=== PATIENT | female | born 1940 | race Caucasian/White ===

== ENCOUNTER 2023-10-03 17:09 | Inpatient (IN) | payer MEDICARE, OTHER ==
[2023-10-03 18:52] LABS: BASO % 1.4 % (0-2.0); EOS % 0.9 % (0-4.5); HEMATOCRIT 39.6 % (32.4-45.2); LYMPH % 9.5 % (8-40); MCH 33.4 pg (25.7-33.7); MCHC 32.8 g/dl (32.0-36.0); MEAN PLT VOLUME 7.5 fl (7.5-11.1); MONO % 16.3 % (3.8-10.2); NEUT % 71.9 % (42.8-82.8); PLATELET COUNT 136 10^3/uL (134-434); RBC 3.88 M/mm3 (3.60-5.2); RDW 17.6 % (11.6-15.6); WHITE BLOOD COUNT 3.4 K/mm3 (4.0-10.0)
[2023-10-03 19:04] LABS: INR 0.92 (0.83-1.09); PROTHROMBIN TIME (PATIENT) 10.7 SEC (9.7-13.0)
[2023-10-03 19:07] LABS: ACTIVATED PTT 31.7 SECONDS (25.2-36.5)
[2023-10-03 19:16] LABS: CHLORIDE 97 mmol/L (98-107); POTASSIUM 4.2 mmol/L (3.5-5.1); SODIUM 137 mmol/L (136-145)
[2023-10-03 19:18] LABS: CALCIUM 9.1 mg/dL (8.5-10.1)
[2023-10-03 19:19] LABS: ALBUMIN 3.5 g/dl (3.4-5.0); ANION GAP 9 mmol/L (4-13); CO2 32 mmol/L (21-32); GLUCOSE,RANDOM 113 mg/dL (74-106)
[2023-10-03 19:22] LABS: CREATININE 4.6 mg/dL (0.55-1.3); SGOT/AST 18 U/L (15-37); SGPT/ALT 13 U/L (13-61)
[2023-10-03 19:24] LABS: BILIRUBIN,TOTAL 0.9 mg/dL (0.2-1)
[2023-10-03 19:25] LABS: ALK PHOS 146 U/L (45-117)
[2023-10-03 19:29] LABS: BLOOD UREA NITROGEN 18.4 mg/dL (7-18)
[2023-10-03] MEDS ORDERED: ASPIRIN 81 MG CHEWABLE TABLETS PO ONE (21:23)
[2023-10-03] MEDS ORDERED: ASPIRIN 81 MG CHEWABLE TABLETS ONE (21:48)
[2023-10-03 22:47] LABS: MAGNESIUM 2.1 mg/dL (1.8-2.4)
[2023-10-03] MEDS ORDERED: MAGNESIUM HYDROX 2400MG/30ML ORAL SUSPENSION 30 ML CUP PO PRN (23:08)
[2023-10-03] MEDS ORDERED: ACETAMINOPHEN 325 MG TABLET (FP) PO PRN (23:10)
[2023-10-04] MEDS: OSELTAMIVIR PHOSPHATE 30 MG CAPSULE PO SCH (00:18)
[2023-10-04 07:44] LABS: POTASSIUM 4.7 mmol/L (3.5-5.1)
[2023-10-04 07:46] LABS: BASO % 0.7 % (0-2.0); EOS % 3.3 % (0-4.5); HEMATOCRIT 37.3 % (32.4-45.2); HEMOGLOBIN 12.2 GM/dL (10.7-15.3); LYMPH % 18.1 % (8-40); MCH 33.5 pg (25.7-33.7); MCHC 32.8 g/dl (32.0-36.0); MEAN CELL VOLUME 102.1 fl (80-96); MEAN PLT VOLUME 7.7 fl (7.5-11.1); MONO % 18.2 % (3.8-10.2); NEUT % 59.7 % (42.8-82.8); PLATELET COUNT 136 10^3/uL (134-434); RBC 3.65 M/mm3 (3.60-5.2); RDW 17.4 % (11.6-15.6); WHITE BLOOD COUNT 3.2 K/mm3 (4.0-10.0)
[2023-10-04 07:48] LABS: ALBUMIN 3.3 g/dl (3.4-5.0); CALCIUM 9.6 mg/dL (8.5-10.1)
[2023-10-04 07:49] LABS: BLOOD UREA NITROGEN 31.7 mg/dL (7-18)
[2023-10-04 07:52] LABS: CREATININE 5.8 mg/dL (0.55-1.3)
[2023-10-04 07:53] LABS: BILIRUBIN,TOTAL 0.8 mg/dL (0.2-1); TOT PROT 6.3 g/dl (6.4-8.2)
[2023-10-04] MEDS: SEVELAMER CARBONATE 800 MG TAB (FP) PO SCH ×3 (08:45→20:05)
[2023-10-04] MEDS ORDERED: amLODIPine BESYLATE 5 MG TABLET (FP) ONE (10:01)
[2023-10-04] MEDS ORDERED: SEVELAMER CARBONATE 800 MG TAB (FP) ONE ×3 (10:01→20:03)
[2023-10-04] MEDS: amLODIPine BESYLATE 5 MG TABLET (FP) PO SCH (10:19)
[2023-10-04] MEDS: HEPARIN NA (PORCINE) 5,000 UNITS/ML 1ML VIAL SQ SCH ×2 (10:20→22:08)
[2023-10-04] MEDS: ASPIRIN 81 MG CHEWABLE TABLETS PO SCH (10:20)
[2023-10-04] MEDS: azaTHIOprine 50 MG TABLET PO SCH (12:55)
[2023-10-04] MEDS ORDERED: SODIUM CHLORIDE 250 ML IV PRN (13:55)
[2023-10-04] MEDS ORDERED: HEPARIN NA (PORCINE) 5,000 UNITS/ML 1ML VIAL ONE (21:58)
[2023-10-05] MEDS ORDERED: SEVELAMER CARBONATE 800 MG TAB (FP) ONE (08:16)
[2023-10-05] MEDS ORDERED: ASPIRIN 81 MG CHEWABLE TABLETS ONE (08:16)
[2023-10-05] MEDS ORDERED: amLODIPine BESYLATE 5 MG TABLET (FP) ONE (08:16)
[2023-10-05] MEDS ORDERED: HEPARIN NA (PORCINE) 5,000 UNITS/ML 1ML VIAL ONE (08:16)
[2023-10-05] MEDS: SEVELAMER CARBONATE 800 MG TAB (FP) PO SCH ×3 (08:18→20:47)
[2023-10-05] MEDS: ASPIRIN 81 MG CHEWABLE TABLETS PO SCH (09:53)
[2023-10-05] MEDS: HEPARIN NA (PORCINE) 5,000 UNITS/ML 1ML VIAL SQ SCH ×2 (09:53→22:13)
[2023-10-05] MEDS: amLODIPine BESYLATE 5 MG TABLET (FP) PO SCH (09:53)
[2023-10-05] MEDS: azaTHIOprine 50 MG TABLET PO SCH (09:53)
[2023-10-05] MEDS: OSELTAMIVIR PHOSPHATE 30 MG CAPSULE PO SCH (22:16)
[2023-10-06 06:53] LABS: BASO % 0.9 % (0-2.0); EOS % 5.1 % (0-4.5); HEMOGLOBIN 12.3 GM/dL (10.7-15.3); LYMPH % 20.2 % (8-40); MCH 33.7 pg (25.7-33.7); MCHC 33.3 g/dl (32.0-36.0); MEAN CELL VOLUME 101.2 fl (80-96); MEAN PLT VOLUME 8.2 fl (7.5-11.1); MONO % 13.6 % (3.8-10.2); NEUT % 60.2 % (42.8-82.8); PLATELET COUNT 130 10^3/uL (134-434); RBC 3.65 M/mm3 (3.60-5.2); RDW 17.1 % (11.6-15.6); WHITE BLOOD COUNT 2.9 K/mm3 (4.0-10.0)
[2023-10-06 07:13] LABS: POTASSIUM 3.9 mmol/L (3.5-5.1)
[2023-10-06 07:22] LABS: CALCIUM 9.2 mg/dL (8.5-10.1)
[2023-10-06 07:23] LABS: BLOOD UREA NITROGEN 25.9 mg/dL (7-18)
[2023-10-06 07:25] LABS: CREATININE 4.6 mg/dL (0.55-1.3)
[2023-10-06 07:27] LABS: BILIRUBIN,TOTAL 0.6 mg/dL (0.2-1); TOT PROT 5.8 g/dl (6.4-8.2)
[2023-10-06] MEDS: SEVELAMER CARBONATE 800 MG TAB (FP) PO SCH ×2 (08:53→15:56)
[2023-10-06] MEDS: HEPARIN NA (PORCINE) 5,000 UNITS/ML 1ML VIAL SQ SCH ×2 (09:00→21:18)
[2023-10-06] MEDS: amLODIPine BESYLATE 5 MG TABLET (FP) PO SCH (09:00)
[2023-10-06] MEDS: ASPIRIN 81 MG CHEWABLE TABLETS PO SCH (09:00)
[2023-10-06 14:02] VITALS: BMI 19.9
[2023-10-06] MEDS: azaTHIOprine 50 MG TABLET PO SCH (15:56)
[2023-10-07] MEDS: SEVELAMER CARBONATE 800 MG TAB (FP) PO SCH ×4 (07:52→18:08)
[2023-10-07] MEDS: HEPARIN NA (PORCINE) 5,000 UNITS/ML 1ML VIAL SQ SCH ×2 (09:00→22:49)
[2023-10-07] MEDS: ASPIRIN 81 MG CHEWABLE TABLETS PO SCH (09:01)
[2023-10-07] MEDS: amLODIPine BESYLATE 5 MG TABLET (FP) PO SCH (09:01)
[2023-10-07] MEDS: azaTHIOprine 50 MG TABLET PO SCH (09:01)
[2023-10-07] MEDS: OSELTAMIVIR PHOSPHATE 30 MG CAPSULE PO SCH (23:23)
[2023-10-08] MEDS ORDERED: SODIUM CHLORIDE 250 ML IV PRN (07:23)
[2023-10-08] MEDS: SEVELAMER CARBONATE 800 MG TAB (FP) PO SCH ×3 (07:53→17:33)
[2023-10-08 09:30] LABS: BASO % 1.1 % (0-2.0); EOS % 5.2 % (0-4.5); HEMATOCRIT 33.5 % (32.4-45.2); HEMOGLOBIN 11.2 GM/dL (10.7-15.3); LYMPH % 12.4 % (8-40); MCH 34.1 pg (25.7-33.7); MCHC 33.6 g/dl (32.0-36.0); MEAN CELL VOLUME 101.5 fl (80-96); MEAN PLT VOLUME 8.1 fl (7.5-11.1); MONO % 11.8 % (3.8-10.2); NEUT % 69.5 % (42.8-82.8); PLATELET COUNT 136 10^3/uL (134-434); RDW 16.9 % (11.6-15.6); WHITE BLOOD COUNT 3.2 K/mm3 (4.0-10.0)
[2023-10-08 09:37] LABS: CHLORIDE 100 mmol/L (98-107); POTASSIUM 4.6 mmol/L (3.5-5.1); SODIUM 134 mmol/L (136-145)
[2023-10-08 09:39] LABS: CALCIUM 8.6 mg/dL (8.5-10.1)
[2023-10-08 09:40] LABS: ANION GAP 7 mmol/L (4-13); CO2 26 mmol/L (21-32); GLUCOSE,RANDOM 92 mg/dL (74-106)
[2023-10-08 09:43] LABS: SGOT/AST 18 U/L (15-37); SGPT/ALT 13 U/L (13-61)
[2023-10-08 09:45] LABS: BILIRUBIN,TOTAL 0.7 mg/dL (0.2-1); TOT PROT 5.9 g/dl (6.4-8.2)
[2023-10-08 09:46] LABS: ALK PHOS 113 U/L (45-117)
[2023-10-08 09:52] LABS: BLOOD UREA NITROGEN 64.3 mg/dL (7-18); CREATININE 8.7 mg/dL (0.55-1.3)
[2023-10-08 10:22] VITALS: RESP 18
[2023-10-08] MEDS: azaTHIOprine 50 MG TABLET PO SCH (12:05)
[2023-10-08] MEDS: ASPIRIN 81 MG CHEWABLE TABLETS PO SCH (12:05)
[2023-10-08] MEDS: amLODIPine BESYLATE 5 MG TABLET (FP) PO SCH (12:05)
[2023-10-08] MEDS: HEPARIN NA (PORCINE) 5,000 UNITS/ML 1ML VIAL SQ SCH (12:05)
[2023-10-08 16:06] VITALS: BP 150/70; PULSE 80; TEMP 98.4
== END 2023-10-08 18:13 | DRG 193 ==
LOC: JER 17:09 → JERBED 20:13 → JICU 10-05 17:51 → J4S 10-07 20:48
PROVIDERS: ADMIT Internal Medicine; ATTEND Internal Medicine
PROC: 5A1D70Z Performance of Urinary Filtration, Intermittent, Less than 6 Hours Per Day (ICD-10-PCS; principal; 2023-10-08)
DX: J10.1 Influenza due to other identified influenza virus with other respiratory manifestations (principal); N18.6 End stage renal disease; I13.2 Hypertensive heart and chronic kidney disease with heart failure and with stage 5 chronic kidney disease, or end stage renal disease; I24.89 Other forms of acute ischemic heart disease; B97.4 Respiratory syncytial virus as the cause of diseases classified elsewhere; Z99.2 Dependence on renal dialysis; I50.9 Heart failure, unspecified
CPT/HCPCS: 0241U-QW; 36415; 70450-TC; 71045-TC-FY; 72125-TC; 72170-TC-FY; 80053; 80061; 82550; 82553; 83735; 84443; 84484; 85025; 85610; 85730; 86704; 86803; 86850; 86870; 86880; 86900; 86901; 86902; 87040; 87340; 87517; 93005; 93010; 93306-TC; 93880-TC; 99285-25; J1644

== ENCOUNTER 2024-08-01 15:42 | Inpatient (IN) | payer MEDICARE, OTHER ==
[2024-08-01 16:27] VITALS: BMI 29.2
[2024-08-01 17:54] LABS: EOS % 3.1 % (0-4.5); HEMATOCRIT 32.3 % (32.4-45.2); HEMOGLOBIN 10.8 GM/dL (10.7-15.3); LYMPH % 8.9 % (8-40); MCH 33.4 pg (25.7-33.7); MCHC 33.5 g/dl (32.0-36.0); MEAN CELL VOLUME 99.6 fl (80-96); MEAN PLT VOLUME 7.3 fl (7.5-11.1); MONO % 10.3 % (3.8-10.2); NEUT % 76.7 % (42.8-82.8); PLATELET COUNT 191 10^3/uL (134-434); RBC 3.25 M/mm3 (3.60-5.2); RDW 18.2 % (11.6-15.6); WHITE BLOOD COUNT 4.1 K/mm3 (4.0-10.0)
[2024-08-01 18:09] LABS: POTASSIUM 4.5 mmol/L (3.5-5.1)
[2024-08-01 18:11] LABS: ALBUMIN 3.3 g/dl (3.4-5.0); BLOOD UREA NITROGEN 32.5 mg/dL (7-18); CALCIUM 8.9 mg/dL (8.5-10.1); MAGNESIUM 2.1 mg/dL (1.8-2.4)
[2024-08-01 18:15] LABS: CREATININE 4.7 mg/dL (0.55-1.3); PHOSPHOROUS 3.4 mg/dL (2.5-4.9)
[2024-08-01 18:16] LABS: BILIRUBIN,TOTAL 1.3 mg/dL (0.2-1); TOT PROT 6.2 g/dl (6.4-8.2)
[2024-08-01] MEDS ORDERED: SODIUM PHOSPHATE/NA BIPHOS 133 ML ENEMA RC PRN ×2 (21:02→21:14)
[2024-08-01] MEDS ORDERED: BISACODYL 10 MG SUPP.RECT RC PRN (21:02)
[2024-08-01] MEDS: HEPARIN NA (PORCINE) 5,000 UNITS/ML 1ML VIAL SQ SCH (22:55)
[2024-08-02 09:53] LABS: HEMATOCRIT 29.3 % (32.4-45.2); HEMOGLOBIN 9.9 GM/dL (10.7-15.3); MCH 33.7 pg (25.7-33.7); MCHC 33.8 g/dl (32.0-36.0); MEAN CELL VOLUME 99.5 fl (80-96); MEAN PLT VOLUME 7.2 fl (7.5-11.1); PLATELET COUNT 173 10^3/uL (134-434); RBC 2.94 M/mm3 (3.60-5.2); WHITE BLOOD COUNT 4.1 K/mm3 (4.0-10.0)
[2024-08-02 10:21] LABS: POTASSIUM 4.3 mmol/L (3.5-5.1)
[2024-08-02 10:24] LABS: CALCIUM 8.8 mg/dL (8.5-10.1)
[2024-08-02 10:25] LABS: BLOOD UREA NITROGEN 40.2 mg/dL (7-18); MAGNESIUM 2.1 mg/dL (1.8-2.4)
[2024-08-02] MEDS: SEVELAMER CARBONATE 800 MG TAB (FP) PO SCH (10:27)
[2024-08-02 10:28] LABS: CREATININE 5.5 mg/dL (0.55-1.3)
[2024-08-02 10:29] LABS: PHOSPHOROUS 4.1 mg/dL (2.5-4.9)
[2024-08-02] MEDS: amLODIPine BESYLATE 5 MG TABLET (FP) PO SCH (10:37)
[2024-08-02] MEDS ORDERED: SODIUM CHLORIDE 250 ML IV PRN (18:45)
[2024-08-03 12:08] LABS: BASO % 0.9 % (0-2.0); EOS % 1.9 % (0-4.5); HEMOGLOBIN 10.2 GM/dL (10.7-15.3); LYMPH % 9.3 % (8-40); MCH 32.9 pg (25.7-33.7); MCHC 32.8 g/dl (32.0-36.0); MEAN CELL VOLUME 100.3 fl (80-96); MEAN PLT VOLUME 7.5 fl (7.5-11.1); MONO % 10.2 % (3.8-10.2); NEUT % 77.7 % (42.8-82.8); PLATELET COUNT 192 10^3/uL (134-434); RBC 3.09 M/mm3 (3.60-5.2); RDW 17.9 % (11.6-15.6); WHITE BLOOD COUNT 4.3 K/mm3 (4.0-10.0)
[2024-08-03 12:41] LABS: POTASSIUM 4.5 mmol/L (3.5-5.1)
[2024-08-03 12:49] LABS: CREATININE 7.2 mg/dL (0.55-1.3)
[2024-08-03 12:50] LABS: PHOSPHOROUS 4.5 mg/dL (2.5-4.9)
[2024-08-03 12:51] LABS: BILIRUBIN,TOTAL 1.2 mg/dL (0.2-1)
[2024-08-03 12:54] LABS: CALCIUM 8.9 mg/dL (8.5-10.1)
[2024-08-03 12:55] LABS: ALBUMIN 3.1 g/dl (3.4-5.0); MAGNESIUM 2.3 mg/dL (1.8-2.4)
[2024-08-04 01:12] VITALS: RESP 18
[2024-08-04 09:22] VITALS: PULSE 65
[2024-08-04] MEDS: amLODIPine BESYLATE 2.5 MG TABLET (FP) PO SCH (09:55)
[2024-08-04 14:13] VITALS: BP 168/74; TEMP 98.4
== END 2024-08-04 15:24 | DRG 640 ==
LOC: JER 15:42 → JERBED 20:07 → OBSVTOIN 20:35 → J5S 22:15
PROVIDERS: ADMIT Internal Medicine
PROC: 5A1D70Z Performance of Urinary Filtration, Intermittent, Less than 6 Hours Per Day (ICD-10-PCS; principal; 2024-08-03)
DX: E87.1 Hypo-osmolality and hyponatremia (principal); N18.6 End stage renal disease; I13.2 Hypertensive heart and chronic kidney disease with heart failure and with stage 5 chronic kidney disease, or end stage renal disease; F03.90 Unspecified dementia, unspecified severity, without behavioral disturbance, psychotic disturbance, mood disturbance, and anxiety; I50.9 Heart failure, unspecified; Z99.2 Dependence on renal dialysis; F32.A Depression, unspecified; F41.9 Anxiety disorder, unspecified
CPT/HCPCS: 36415; 70450-TC; 71045-TC-FY; 72125-TC; 80048; 80053; 83735; 83880; 84100; 84484; 85025; 85027; 86704; 86803; 87340; 87517; 93005; 93010; 99285-25; G0378; J1644

== ENCOUNTER 2024-09-04 22:17 | Inpatient (IN) | payer MEDICARE, OTHER ==
[2024-09-04] MEDS ORDERED: PANTOPRAZOLE SODIUM 40 MG VIAL ONE (23:55)
[2024-09-05] MEDS: PANTOPRAZOLE SODIUM 40 MG VIAL IVPUSH ONE (00:01)
[2024-09-05 00:07] LABS: HEMATOCRIT 31.6 % (32.4-45.2); HEMOGLOBIN 10.5 GM/dL (10.7-15.3); MCH 32.9 pg (25.7-33.7); MCHC 33.1 g/dl (32.0-36.0); MEAN CELL VOLUME 99.3 fl (80-96); MEAN PLT VOLUME 7.6 fl (7.5-11.1); PLATELET COUNT 138 10^3/uL (134-434); RBC 3.18 M/mm3 (3.60-5.2); RDW 17.2 % (11.6-15.6)
[2024-09-05 00:27] LABS: POTASSIUM 3.7 mmol/L (3.5-5.1)
[2024-09-05 00:29] LABS: MAGNESIUM 1.8 mg/dL (1.8-2.4)
[2024-09-05 00:30] LABS: BLOOD UREA NITROGEN 18.4 mg/dL (7-18)
[2024-09-05 00:32] LABS: CREATININE 3.2 mg/dL (0.55-1.3)
[2024-09-05 00:33] LABS: PHOSPHOROUS 1.8 mg/dL (2.5-4.9)
[2024-09-05 00:34] LABS: BILIRUBIN,TOTAL 1.1 mg/dL (0.2-1)
[2024-09-05 00:35] LABS: INR 1.37 (0.83-1.09); PROTHROMBIN TIME (PATIENT) 15.6 SEC (9.7-13.0)
[2024-09-05 00:38] LABS: ACTIVATED PTT 33.8 SECONDS (25.2-36.5)
[2024-09-05 09:34] LABS: POTASSIUM 4.8 mmol/L (3.5-5.1)
[2024-09-05 09:36] LABS: CALCIUM 9.5 mg/dL (8.5-10.1)
[2024-09-05 09:37] LABS: ALBUMIN 3.2 g/dl (3.4-5.0); MAGNESIUM 2.2 mg/dL (1.8-2.4)
[2024-09-05 09:40] LABS: CREATININE 3.9 mg/dL (0.55-1.3); PHOSPHOROUS 3.5 mg/dL (2.5-4.9)
[2024-09-05 09:41] LABS: BILIRUBIN,TOTAL 1.2 mg/dL (0.2-1); TOT PROT 6.5 g/dl (6.4-8.2)
[2024-09-05 09:45] LABS: HEMATOCRIT 34.6 % (32.4-45.2); HEMOGLOBIN 11.4 GM/dL (10.7-15.3); MCH 33.1 pg (25.7-33.7); MEAN CELL VOLUME 100.4 fl (80-96); MEAN PLT VOLUME 7.7 fl (7.5-11.1); PLATELET COUNT 134 10^3/uL (134-434); RBC 3.44 M/mm3 (3.60-5.2); RDW 17.5 % (11.6-15.6)
[2024-09-05] MEDS ORDERED: BISACODYL 10 MG SUPP.RECT RC PRN (10:26)
[2024-09-05 10:40] LABS: ANISOCYTOSIS 0; HELMET CELLS 0; HOWELL-JOLLY BODIES 0; MACROCYTOSIS 0; OVALOCYTE 0; ROULEAU 0; SICKELED CELLS 0; TARGET CELLS 0; TEAR DROP CELLS 0; TOXIC GRANULATION 0
[2024-09-05] MEDS ORDERED: ACETAMINOPHEN 325 MG TABLET (FP) PO PRN (12:00)
[2024-09-05] MEDS: ACETAMINOPHEN 1000 MG/100 ML BAG IVPB PRN (12:41)
[2024-09-05] MEDS ORDERED: SODIUM CHLORIDE 250 ML IV PRN (12:51)
[2024-09-05] MEDS: PIPERACILLIN/TAZOB 2.25 GM 2.25 GM in DEXTROSE 5%-WATER - 50 ML IVPB SCH ×2 (15:10→17:26)
[2024-09-05] MEDS: amLODIPine BESYLATE 5 MG TABLET (FP) PO SCH (15:10)
[2024-09-05] MEDS: CALCIUM ACETATE 667 MG CAPSULE (FP) PO SCH (17:26)
[2024-09-05] MEDS: ATORVASTATIN CA 20 MG TABLET (FP) PO SCH (21:44)
[2024-09-05] MEDS: PANTOPRAZOLE SODIUM 40 MG VIAL IVPUSH SCH (21:44)
[2024-09-05] MEDS: POLYETHYLENE GLYCOL (HEALTHYLAX) 3350 17 GM PACKET PO SCH (21:44)
[2024-09-06] MEDS: VANCOMYCIN/WATER FOR INJ (PEG) 1,000 MG/200 ML BAG IVPB ONE (00:55)
[2024-09-06 07:26] LABS: BASO % 0.4 % (0-2.0); EOS % 0.9 % (0-4.5); HEMATOCRIT 31.2 % (32.4-45.2); HEMOGLOBIN 10.2 GM/dL (10.7-15.3); LYMPH % 3.2 % (8-40); MCH 33.2 pg (25.7-33.7); MCHC 32.8 g/dl (32.0-36.0); MEAN PLT VOLUME 8.5 fl (7.5-11.1); MONO % 5.7 % (3.8-10.2); NEUT % 89.8 % (42.8-82.8); PLATELET COUNT 121 10^3/uL (134-434); RBC 3.09 M/mm3 (3.60-5.2); RDW 17.3 % (11.6-15.6)
[2024-09-06] MEDS: APIXABAN 2.5 MG TABLET PO SCH (07:38)
[2024-09-06] MEDS: PANTOPRAZOLE SODIUM 40 MG VIAL IVPUSH SCH (07:38)
[2024-09-06 07:39] LABS: POTASSIUM 4.4 mmol/L (3.5-5.1)
[2024-09-06 07:41] LABS: ALBUMIN 2.7 g/dl (3.4-5.0); CALCIUM 8.6 mg/dL (8.5-10.1)
[2024-09-06 07:42] LABS: BLOOD UREA NITROGEN 41.1 mg/dL (7-18)
[2024-09-06 07:45] LABS: CREATININE 4.9 mg/dL (0.55-1.3)
[2024-09-06 07:46] LABS: BILIRUBIN,TOTAL 1.1 mg/dL (0.2-1); TOT PROT 5.7 g/dl (6.4-8.2)
[2024-09-06] MEDS: METOPROLOL TARTRATE 25 MG TABLET (FP) PO SCH (11:29)
[2024-09-06] MEDS: VANCOMYCIN/WATER 1250 MG 1,250 MG/250 ML BAG IVPB ONE (12:41)
[2024-09-06] MEDS: PIPERACILLIN/TAZOB 2.25 GM 2.25 GM/50 ML BAG IVPB SCH (17:29)
[2024-09-07 08:33] LABS: BASO % 0.6 % (0-2.0); EOS % 3.1 % (0-4.5); HEMATOCRIT 30.1 % (32.4-45.2); HEMOGLOBIN 9.9 GM/dL (10.7-15.3); MCH 32.7 pg (25.7-33.7); MEAN PLT VOLUME 8.4 fl (7.5-11.1); MONO % 10.6 % (3.8-10.2); NEUT % 78.7 % (42.8-82.8); PLATELET COUNT 123 10^3/uL (134-434); RBC 3.04 M/mm3 (3.60-5.2); WHITE BLOOD COUNT 5.6 K/mm3 (4.0-10.0)
[2024-09-07 08:54] LABS: POTASSIUM 4.5 mmol/L (3.5-5.1)
[2024-09-07 08:55] LABS: CALCIUM 8.6 mg/dL (8.5-10.1)
[2024-09-07 08:56] LABS: BLOOD UREA NITROGEN 60.6 mg/dL (7-18)
[2024-09-07 08:59] LABS: CREATININE 6.2 mg/dL (0.55-1.3)
[2024-09-07] MEDS: VANCOMYCIN/WATER 1250 MG 1,250 MG/250 ML BAG IVPB ONE (17:59)
[2024-09-08 09:38] LABS: BASO % 0.8 % (0-2.0); HEMATOCRIT 31.2 % (32.4-45.2); HEMOGLOBIN 10.4 GM/dL (10.7-15.3); LYMPH % 9.2 % (8-40); MCH 33.1 pg (25.7-33.7); MCHC 33.4 g/dl (32.0-36.0); MEAN PLT VOLUME 8.5 fl (7.5-11.1); MONO % 17.9 % (3.8-10.2); NEUT % 70.1 % (42.8-82.8); PLATELET COUNT 127 10^3/uL (134-434); RBC 3.15 M/mm3 (3.60-5.2); WHITE BLOOD COUNT 3.8 K/mm3 (4.0-10.0)
[2024-09-08 10:07] LABS: POTASSIUM 3.2 mmol/L (3.5-5.1)
[2024-09-08 10:15] LABS: CALCIUM 8.8 mg/dL (8.5-10.1)
[2024-09-08 10:16] LABS: ALBUMIN 2.6 g/dl (3.4-5.0); MAGNESIUM 2.1 mg/dL (1.8-2.4)
[2024-09-08 10:18] LABS: BILIRUBIN,DIRECT 0.5 mg/dL (0.0-0.2); CREATININE 3.8 mg/dL (0.55-1.3); PHOSPHOROUS 2.7 mg/dL (2.5-4.9)
[2024-09-08 10:19] LABS: TOT PROT 5.8 g/dl (6.4-8.2)
[2024-09-08 10:22] LABS: BLOOD UREA NITROGEN 20.4 mg/dL (7-18)
[2024-09-08] MEDS: POTASSIUM CHLORIDE ORAL LIQUID 20 MEQ/15 ML PO SCH (12:13)
[2024-09-09 07:40] LABS: BASO % 0.8 % (0-2.0); EOS % 0.4 % (0-4.5); HEMATOCRIT 31.4 % (32.4-45.2); HEMOGLOBIN 10.4 GM/dL (10.7-15.3); LYMPH % 10.8 % (8-40); MCH 33.1 pg (25.7-33.7); MEAN CELL VOLUME 100.3 fl (80-96); MEAN PLT VOLUME 8.4 fl (7.5-11.1); MONO % 15.8 % (3.8-10.2); NEUT % 72.2 % (42.8-82.8); PLATELET COUNT 124 10^3/uL (134-434); RBC 3.13 M/mm3 (3.60-5.2); RDW 17.2 % (11.6-15.6); WHITE BLOOD COUNT 4.7 K/mm3 (4.0-10.0)
[2024-09-09 07:46] LABS: POTASSIUM 5.1 mmol/L (3.5-5.1)
[2024-09-09 07:55] LABS: CREATININE 5.3 mg/dL (0.55-1.3)
[2024-09-09 07:56] LABS: ALBUMIN 2.8 g/dl (3.4-5.0); BLOOD UREA NITROGEN 27.1 mg/dL (7-18)
[2024-09-09 07:57] LABS: BILIRUBIN,TOTAL 0.9 mg/dL (0.2-1)
[2024-09-09 07:58] LABS: CALCIUM 9.1 mg/dL (8.5-10.1)
[2024-09-09 07:59] LABS: MAGNESIUM 2.1 mg/dL (1.8-2.4); PHOSPHOROUS 3.6 mg/dL (2.5-4.9)
[2024-09-09] MEDS ORDERED: SODIUM CHLORIDE 250 ML IV PRN (09:17)
[2024-09-09] MEDS: EPOETIN ALFA-EPBX 3,000 UNIT/ML VIAL IVPUSH ONE (10:49)
[2024-09-09] MEDS: POLYETHYLENE GLYCOL (HEALTHYLAX) 3350 17 GM PACKET PO SCH (12:55)
[2024-09-09 16:08] LABS: C-ANCA <1:20 titer (Neg:<1:20)
[2024-09-10 09:24] LABS: BASO % 1.1 % (0-2.0); EOS % 0.3 % (0-4.5); HEMATOCRIT 31.8 % (32.4-45.2); HEMOGLOBIN 10.8 GM/dL (10.7-15.3); LYMPH % 18.6 % (8-40); MCH 33.6 pg (25.7-33.7); MCHC 33.9 g/dl (32.0-36.0); MEAN CELL VOLUME 99.3 fl (80-96); MONO % 18.4 % (3.8-10.2); NEUT % 61.6 % (42.8-82.8); PLATELET COUNT 132 10^3/uL (134-434); RDW 17.3 % (11.6-15.6); WHITE BLOOD COUNT 3.2 K/mm3 (4.0-10.0)
[2024-09-10 09:35] LABS: CALCIUM 8.8 mg/dL (8.5-10.1)
[2024-09-10 09:36] LABS: ALBUMIN 2.7 g/dl (3.4-5.0); BLOOD UREA NITROGEN 17.4 mg/dL (7-18)
[2024-09-10 09:39] LABS: CREATININE 4.1 mg/dL (0.55-1.3)
[2024-09-10 09:40] LABS: TOT PROT 5.9 g/dl (6.4-8.2)
[2024-09-10] MEDS: PANTOPRAZOLE 40 MG TABLET PO SCH (21:20)
[2024-09-11] MEDS: VANCOMYCIN 250 MG in DEXTROSE 5%-WATER - 100 ML IVPB SCH (06:38)
[2024-09-11 08:33] LABS: BASO % 1.1 % (0-2.0); EOS % 4.4 % (0-4.5); HEMATOCRIT 30.6 % (32.4-45.2); LYMPH % 21.1 % (8-40); MCH 32.8 pg (25.7-33.7); MCHC 32.8 g/dl (32.0-36.0); MEAN PLT VOLUME 7.9 fl (7.5-11.1); MONO % 12.9 % (3.8-10.2); NEUT % 60.5 % (42.8-82.8); PLATELET COUNT 141 10^3/uL (134-434); RBC 3.06 M/mm3 (3.60-5.2); RDW 17.4 % (11.6-15.6); WHITE BLOOD COUNT 3.8 K/mm3 (4.0-10.0)
[2024-09-11 08:56] LABS: POTASSIUM 3.8 mmol/L (3.5-5.1)
[2024-09-11 09:04] LABS: BLOOD UREA NITROGEN 33.6 mg/dL (7-18); CALCIUM 8.8 mg/dL (8.5-10.1)
[2024-09-11 09:05] LABS: ALBUMIN 2.4 g/dl (3.4-5.0)
[2024-09-11 09:07] LABS: CREATININE 5.5 mg/dL (0.55-1.3)
[2024-09-11 09:09] LABS: BILIRUBIN,TOTAL 0.8 mg/dL (0.2-1); TOT PROT 5.5 g/dl (6.4-8.2)
[2024-09-12 08:29] LABS: BASO % 0.8 % (0-2.0); EOS % 7.8 % (0-4.5); HEMATOCRIT 29.3 % (32.4-45.2); HEMOGLOBIN 9.6 GM/dL (10.7-15.3); LYMPH % 17.4 % (8-40); MCH 32.5 pg (25.7-33.7); MCHC 32.6 g/dl (32.0-36.0); MEAN CELL VOLUME 99.8 fl (80-96); MONO % 9.6 % (3.8-10.2); NEUT % 64.4 % (42.8-82.8); PLATELET COUNT 152 10^3/uL (134-434); RBC 2.94 M/mm3 (3.60-5.2); RDW 17.2 % (11.6-15.6)
[2024-09-12] MEDS ORDERED: SODIUM CHLORIDE 250 ML IV PRN (08:30)
[2024-09-12 08:57] LABS: ALBUMIN 2.4 g/dl (3.4-5.0); BLOOD UREA NITROGEN 46.5 mg/dL (7-18); CALCIUM 8.4 mg/dL (8.5-10.1); MAGNESIUM 2.1 mg/dL (1.8-2.4)
[2024-09-12 09:00] LABS: CREATININE 6.6 mg/dL (0.55-1.3)
[2024-09-12 09:01] LABS: BILIRUBIN,TOTAL 0.8 mg/dL (0.2-1)
[2024-09-12 09:02] LABS: TOT PROT 5.1 g/dl (6.4-8.2)
[2024-09-12] MEDS: EPOETIN ALFA-EPBX 4,000 UNIT/ML VIAL IVPUSH ONE (09:40)
[2024-09-12] MEDS: VANCOMYCIN/WATER FOR INJ (PEG) 1 GM/200 ML BAG IVPB SCH (11:13)
[2024-09-12] MEDS: azaTHIOprine 50 MG TABLET PO SCH (12:51)
[2024-09-13 08:15] LABS: BASO % 0.9 % (0-2.0); EOS % 6.3 % (0-4.5); HEMOGLOBIN 10.5 GM/dL (10.7-15.3); LYMPH % 14.7 % (8-40); MCH 32.7 pg (25.7-33.7); MCHC 32.8 g/dl (32.0-36.0); MEAN CELL VOLUME 99.9 fl (80-96); MEAN PLT VOLUME 8.1 fl (7.5-11.1); MONO % 9.7 % (3.8-10.2); NEUT % 68.4 % (42.8-82.8); PLATELET COUNT 159 10^3/uL (134-434); RDW 17.1 % (11.6-15.6); WHITE BLOOD COUNT 4.8 K/mm3 (4.0-10.0)
[2024-09-13 08:36] LABS: POTASSIUM 4.3 mmol/L (3.5-5.1)
[2024-09-13 08:49] LABS: ALBUMIN 2.5 g/dl (3.4-5.0); BLOOD UREA NITROGEN 24.4 mg/dL (7-18); CALCIUM 8.6 mg/dL (8.5-10.1)
[2024-09-13 08:52] LABS: CREATININE 4.2 mg/dL (0.55-1.3)
[2024-09-13 08:54] LABS: TOT PROT 5.6 g/dl (6.4-8.2)
[2024-09-14 08:54] LABS: BASO % 0.7 % (0-2.0); EOS % 5.3 % (0-4.5); HEMATOCRIT 32.6 % (32.4-45.2); HEMOGLOBIN 10.7 GM/dL (10.7-15.3); LYMPH % 12.2 % (8-40); MCH 32.7 pg (25.7-33.7); MCHC 32.8 g/dl (32.0-36.0); MEAN CELL VOLUME 99.7 fl (80-96); MEAN PLT VOLUME 8.4 fl (7.5-11.1); MONO % 7.8 % (3.8-10.2); PLATELET COUNT 176 10^3/uL (134-434); RBC 3.27 M/mm3 (3.60-5.2); RDW 17.1 % (11.6-15.6); WHITE BLOOD COUNT 6.3 K/mm3 (4.0-10.0)
[2024-09-14 09:15] LABS: POTASSIUM 4.6 mmol/L (3.5-5.1)
[2024-09-14 09:19] LABS: ALBUMIN 2.8 g/dl (3.4-5.0); BLOOD UREA NITROGEN 36.2 mg/dL (7-18); MAGNESIUM 2.1 mg/dL (1.8-2.4)
[2024-09-14 09:22] LABS: CREATININE 5.5 mg/dL (0.55-1.3)
[2024-09-14 09:23] LABS: BILIRUBIN,TOTAL 1.1 mg/dL (0.2-1)
[2024-09-14 14:43] VITALS: BMI 19.0
[2024-09-15] MEDS ORDERED: SODIUM CHLORIDE 250 ML IV PRN (08:30)
[2024-09-15] MEDS: EPOETIN ALFA-EPBX 4,000 UNIT/ML VIAL IVPUSH ONE (09:38)
[2024-09-15 09:48] LABS: BASO % 0.7 % (0-2.0); EOS % 5.1 % (0-4.5); HEMATOCRIT 30.1 % (32.4-45.2); HEMOGLOBIN 9.9 GM/dL (10.7-15.3); LYMPH % 12.3 % (8-40); MCH 32.8 pg (25.7-33.7); MCHC 33.1 g/dl (32.0-36.0); MEAN CELL VOLUME 99.1 fl (80-96); MEAN PLT VOLUME 8.2 fl (7.5-11.1); NEUT % 72.9 % (42.8-82.8); PLATELET COUNT 169 10^3/uL (134-434); RBC 3.03 M/mm3 (3.60-5.2); WHITE BLOOD COUNT 6.3 K/mm3 (4.0-10.0)
[2024-09-15 10:01] LABS: POTASSIUM 5.1 mmol/L (3.5-5.1)
[2024-09-15 10:11] LABS: CALCIUM 8.9 mg/dL (8.5-10.1)
[2024-09-15 10:12] LABS: ALBUMIN 2.7 g/dl (3.4-5.0); MAGNESIUM 2.2 mg/dL (1.8-2.4)
[2024-09-15 10:15] LABS: CREATININE 6.6 mg/dL (0.55-1.3)
[2024-09-15 10:17] LABS: TOT PROT 5.8 g/dl (6.4-8.2)
[2024-09-16 00:05] VITALS: RESP 18
[2024-09-16 08:44] LABS: BASO % 0.7 % (0-2.0); EOS % 4.5 % (0-4.5); HEMATOCRIT 31.6 % (32.4-45.2); HEMOGLOBIN 10.5 GM/dL (10.7-15.3); LYMPH % 12.6 % (8-40); MCH 33.4 pg (25.7-33.7); MCHC 33.4 g/dl (32.0-36.0); MEAN PLT VOLUME 8.2 fl (7.5-11.1); MONO % 13.3 % (3.8-10.2); NEUT % 68.9 % (42.8-82.8); PLATELET COUNT 167 10^3/uL (134-434); RBC 3.16 M/mm3 (3.60-5.2); RDW 17.5 % (11.6-15.6); WHITE BLOOD COUNT 4.7 K/mm3 (4.0-10.0)
[2024-09-16 09:10] LABS: POTASSIUM 4.6 mmol/L (3.5-5.1)
[2024-09-16 09:22] LABS: ALBUMIN 2.6 g/dl (3.4-5.0); CALCIUM 8.7 mg/dL (8.5-10.1)
[2024-09-16 09:23] LABS: MAGNESIUM 1.9 mg/dL (1.8-2.4); TOT PROT 5.8 g/dl (6.4-8.2)
[2024-09-16 09:24] LABS: BLOOD UREA NITROGEN 24.5 mg/dL (7-18)
[2024-09-16 09:25] LABS: CREATININE 3.8 mg/dL (0.55-1.3)
[2024-09-16 18:55] VITALS: BP 138/56; PULSE 63; TEMP 98.1
== END 2024-09-16 19:05 | DRG 871 ==
LOC: JER 22:17 → JERBED 09-05 07:43 → J7W 09-05 10:28 → OBSVTOIN 09-06 13:20 → J7W 09-07 19:49
PROVIDERS: ADMIT Student in an Organized Health Care Education/Training Program; ATTEND Registered Nurse
PROC: 5A1D70Z Performance of Urinary Filtration, Intermittent, Less than 6 Hours Per Day (ICD-10-PCS; principal; 2024-09-15)
DX: R78.81 Bacteremia (principal); N18.6 End stage renal disease; K92.2 Gastrointestinal hemorrhage, unspecified; I13.2 Hypertensive heart and chronic kidney disease with heart failure and with stage 5 chronic kidney disease, or end stage renal disease; M31.30 Wegener's granulomatosis without renal involvement; I38 Endocarditis, valve unspecified; I50.32 Chronic diastolic (congestive) heart failure; R64 Cachexia; Z68.1 Body mass index [BMI] 19.9 or less, adult; F03.90 Unspecified dementia, unspecified severity, without behavioral disturbance, psychotic disturbance, mood disturbance, and anxiety; B95.62 Methicillin resistant Staphylococcus aureus infection as the cause of diseases classified elsewhere; K74.60 Unspecified cirrhosis of liver; Z99.2 Dependence on renal dialysis
CPT/HCPCS: 0241U-QW; 36415; 70450-TC; 71045-TC-FY; 74176-TC; 76705-TC; 76882-TC-RT-FY; 80048; 80053; 80076; 82272; 83036; 83520; 83605; 83735; 84100; 84484; 85025; 85610; 85730; 86256; 86704; 86708; 86803; 86850; 86870; 86880; 86900; 86901; 86902; 87040; 87070; 87077; 87081; 87186; 87205; 87340; 87517; 93005; 93010; 93306-TC; 93990-TC; 97116-GP; 97162-GP; 99285-25; G0378; G0480; J0131; Q5106